=== PATIENT | male | born 1980 | race Caucasian/White ===

== ENCOUNTER 2019-01-31 07:42 | Emergency (ER) | payer OTHER ==
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
[2019-01-31 08:47] LABS: CHLORIDE,CL 105 mmol/L (98-107); SODIUM,NA 140 mmol/L (136-148)
== END 2019-01-31 10:34 | disposition home or self-care (01) ==
LOC: MW.ED 07:42
DX: S06.0X9A Concussion with loss of consciousness of unspecified duration, initial encounter (principal); S01.312A Laceration without foreign body of left ear, initial encounter; V58.5XXA Driver of pick-up truck or van injured in noncollision transport accident in traffic accident, initial encounter; Y92.410 Unspecified street and highway as the place of occurrence of the external cause
CPT/HCPCS: 36415; 70450; 70450-26; 71045; 71045-26; 72125; 72125-26; 72170; 72170-26; 80053; 81001; 85025; 93005; 99285-25